=== PATIENT | female | born 1960 | race Hispanic/Latino ===

== ENCOUNTER 2018-04-07 01:40 | Inpatient (IN) | payer OTHER ==
[~2018-04-07] VITALS: Ht 167.6 cm; Wt 73.5 kg
[~2018-04-07 01:40] MED LIST: CRESTOR20 M2 PO; LISINOPRIL10 M1 PO; METFORMIN HCL500 M3 PO; TRAMADOL HCL50 M1 PO
--- NOTE | 2018-04-07 09:50 | Admission Core Measures ---
Acute Coronary Syndrome (CM) ACS Core Measures Acute Coronary Syndrome Diagnosis No Congestive Heart Failure (NEW) CHF Core Measures Congestive Heart Failure Diagnosis No Cerebrovascular Accident CVA Core Measures CVA/TIA Diagnosis No Venous Thromboembolism VTE Core Breana (View Protocol) VTE Risk Factors Surgery No Mechanical VTE Prophylaxis d/t N/A MechProphylax Ordered No VTE Pharm Prophylaxis d/t NA PharmProphylax ordered Problem List As ranked by this Provider includes Assessment & Plan 1. Unilateral primary osteoarthritis, right knee HOME MEDS Home Med List Lisinopril 10 MG TABLET 1 TAB PO DAILY BP (Reported) Metformin HCl 500 MG TABLET 1 TAB PO BID DM (Reported) Rosuvastatin Calcium (Crestor) 20 MG TABLET 1 TAB PO DAILY CHOLESTEROL ( Reported) Tramadol HCl 50 MG TABLET 1 TAB PO Q6P PRN PAIN (Reported)
--- NOTE | 2018-04-07 09:53 | Surg Short-stay <48hrs Dis Sum ---
Visit Information Visit Dates Admission Date: 04/07/18 Discharge Date: 04/09/18 Surgical Short Stay DC Summary Admission Diagnosis: Primary osteoarthritis, right knww Final Diagnosis: Same s/p R TKR Procedure(s): R TKR Summary/Significant Findings: Patient was admitted to the hospital for an elective total joint replacement. Procedure was tolerated well and patient was transferred to a general surgical floor. Diet was advanced and tolerated. Physical therapy performed evaluation and treatment. At time of hospital discharge, vital signs were stable, neurovascular status was intact, and pain was controlled with the use of oral pain medications. Condition at Discharge: Stable Discharge Disposition: home health services Discharge instructions provided to patient/family: Yes Post discharge follow-up plan: 6 weeks or sooner with concerns with Dr. Cook
--- NOTE | 2018-04-07 09:55 | Patient Discharge Instructions ---
Discharge Instructions General Discharge Information You were seen/treated for: Primary osteoarthritis, right knee You had these procedures: Right total knee replacement Watch for these problems: Increasing pain despite the use of pain medication Increasing redness, warmth or swelling Drainage of any type from incision Inability to bear weight on operative leg Persistent nausea and vomiting Fever greater than 101.5 degrees No bath, but you may shower: Yes Other wound care: Please keep wound clean and dry. No ointments or lotions of any type on or near incision. Your dressing will be changed by your nurse on the second day after your surgery. Daily dry dressing changes are recommended each day thereafter. Do not soak your wound- no tub baths/swimming. You may shower 48hr after surgery. Special Instructions: Aspirin: You are taking this medication to help prevent blood clot formation. Please take with food to protect your stomach lining. Please take as directed. Constipation: Pain medication can cause constipation. It is recommended that you take Colace and Miralax each day. Discontinue this medication if you develop loose stool or diarrhea. If you wish to continue this medication, it is available over the counter. If you are unable to move your bowels or unable to pass gas and are developing bloating, nausea, or vomiting as a result, please contact your doctor. Diet Continue normal diet: Yes Activity Full Activity/No Limits: No Activity Self Limited: Yes Activity Limited to: Weight bear as tolerated Other activity limits: Use rolling walker as needed Acute Coronary Syndrome Inclusion Criteria At DC or during hospital stay patient has or had the following: ACS DIAGNOSIS No Discharge Core Measures Meds if any: Prescribed or Continued at Discharge Meds if any: NOT Prescribed or Continued at Discharge Congestive Heart Failure Inclusion Criteria At DC or during hospital stay patient has or had the following: CHF DIAGNOSIS No Discharge Core Measures Meds if any: Prescribed or Continued at Discharge Meds if any: NOT Prescribed or Continued at Discharge Cerebrovascular accident Inclusion Criteria At DC or during hospital stay patient has or had the following: CVA/TIA Diagnosis No Discharge Core Measures Meds if any: Prescribed or Continued at Discharge Meds if any: NOT Prescribed or Continued at Discharge Venous thromboembolism Inclusion Criteria VTE Diagnosis No VTE Type NONE VTE Confirmed by (Test) NONE Discharge Core Measures - Per Current guidelines, there needs to be overlap - treatment for the first 5 days of Warfarin therapy. - If discharged on Warfarin prior to 5 days of - overlap therapy, the patient will need to be - assessed for post discharge needs including - *Post discharge parental anticoagulation - *Warfarin and/or parental anticoagulation education - *Follow up date to check INR post discharge At least 5 days overlap therapy as Inpatient No Meds if any: Prescribed or Continued at Discharge Note: Overlap Therapy is Warfarin and Anticoagulant Meds if any: NOT Prescribed or Continued at Discharge
[2018-04-07] MEDS ORDERED: MS CONTIN15 M3 PO (12:52)
[2018-04-07] MEDS ORDERED: ASPIRIN EC81 M1 PO (12:52)
[2018-04-07] MEDS ORDERED: MIRALAX17 G1 PO (12:52)
[2018-04-07] MEDS ORDERED: OMEPRAZOLE20 M2 PO (12:52)
[2018-04-07] MEDS ORDERED: DILAUDID2 M1 PO (12:52)
[2018-04-07] MEDS ORDERED: COLACE100 M1 PO (12:52)
--- NOTE | 2018-04-07 14:25 | Operative Report ---
Operative/Inv Procedure Report Surgery Date: 04/07/18 Name of Procedure: Right total knee replacement Pre-Operative Diagnosis: Primary right knee DJD Post-Operative Diagnosis: Same Estimated Blood Loss: 50ml to 100ml Surgeon/Job Site Superintendent: Joey LEE,Danny Brown Anesthesia: block Operative/Procedure Note Note: Description of Procedure: The patient was taken to the operating room and positively identified. After induction of spinal anesthesia and administration of appropriate pre-operative antibiotics, the patient was positioned supine on the operating room table and all bony prominences were well padded. A well-padded pneumatic tourniquet was placed on the right upper thigh. After performing a surgical timeout, the right lower extremity was prepped and draped in the usual sterile fashion. After exsanguination with Esmarch the tourniquet was inflated to 250mm of mercury. A standard medial parapatellar approach was made to the knee. This was carried down through skin and subcutaneous tissue to the level of the fascia. Meticulous hemostasis was maintained with Bovie electrocautery. The extensor mechanism and patellar retinaculum were opened sharply and the patella was everted. The infrapatellar fat was resected in order to improve exposure. Osteophytes were trimmed from the patella and femoral condyles and the patella was re-everted and tucked laterally. A medial release was performed and the cruciate ligaments were resected. The tibia was then subluxed anteriorly. Utilizing the appropriate extra-medullary guide, the proximal tibia was trimmed perpendicular to the long axis of the tibial shaft. Attention was then turned to the femur. After opening the medullary canal, the distal femoral cut was made in 6 degrees of valgus utilizing the appropriate intra-medullary guide. The extension gap was checked and found to be appropriate. The femur was then sized and the remainder of the femoral cuts were made with a size #4 4-in-1 femoral cutting guide. The flexion gap was checked and found to be symmetric and appropriate. The knee was then trialed with a size #4 femoral component, a size 3 tibial component and a size 9 mm polyethylene insert. The patella was trimmed to accept an A 35 patella. This yielded excellent range of motion, stability and patellar tracking. All trial components were removed and the knee was copiously irrigated with sterile saline. All components were cemented into place with [place] Simplex cement. All the components were of the J[employer] Tri[employer]lon knee system of the above stated sizes. The knee was again irrigated after cementation. The extensor mechanism and patellar retinaculum were repaired using interrupted #1 vicryl suture. The skin was re-approximated with 2-0 vicryl and closed with danni. A sterile dressing was applied, the tourniquet was deflated, the patient was awakened and taken to the recovery room in satisfactory condition.
[2018-04-07 16:07] VITALS: BP 106/70
[2018-04-07 18:14] VITALS: BP 138/70
--- NOTE | 2018-04-07 19:52 | PN- Orthopedic ---
Subjective Subjective: POC feeling ok, pain starting to increase, asking for meds now. no n/v. +oob to bathroom, +void. no cp/sob Objective Vital Signs and I&Os Vital Signs Date Time Temp Pulse Resp B/P B/P Pulse O2 O2 Flow FiO2 Mean Ox Delivery Rate 04/07 1814 97.8 79 18 138/70 99 Room Air 04/07 1607 97.8 70 18 106/70 97 Room Air Intake & Output 04/07 1600 04/07 0804/07 0000 04/06 1600 04/06 0800 04/06 0000 Intake Total Output Total Balance Patient 162 lb Weight Physical Exam: gen- nad, though appears uncomfortable card- [id number] pulm- ctab abd- soft nt ext- rle dressed in deandre- cdi, palp pedal pulses, gross sensation intact, +dorsi/ plantar flexion. calves soft nt bl, alps on. Assessment/Plan Assessment/Plan A- POD0 sp R TKR, stable with postop pain. P- prn pain meds oob, pt, wbat asa bid, alps dsg change pod2 diet as tolerated am labs i&os will dw attending Core Measures Venous Thromboembolism VTE Risk Factors Surgery No Mechanical VTE Prophylaxis d/t N/A MechProphylax Ordered No VTE Pharm Prophylaxis d/t NA PharmProphylax ordered
[2018-04-07 20:01] VITALS: BP 146/90
[2018-04-07 22:00] VITALS: BP 130/80
[2018-04-08 02:07] VITALS: BP 128/74
[2018-04-08 06:27] VITALS: BP 110/64
--- NOTE | 2018-04-08 07:29 | PN- Orthopedic ---
Subjective Subjective: No events overnight. Patient states pain is well controlled this am, denies any current pain to right knee. Denies any numbness, tingling, or shooting pain. Tolerating her diet without nausea or emesis. Voiding freely. Ambulated to the bathroom with walker, has not yet worked with PT per patient. Objective Vital Signs and I&Os Vital Signs Date Time Temp Pulse Resp B/P B/P Pulse O2 O2 Flow FiO2 Mean Ox Delivery Rate 04/08 0627 98.5 73 20 110/64 94 04/08 0207 98.5 65 20 128/74 96 / 2200 98.4 86 18 130/80 95 Room Air 04/07 2020 Room Air 04/07 2001 98.5 83 18 146/90 97 Room Air 04/07 1814 97.8 79 18 138/70 99 Room Air 04/07 1607 97.8 70 18 106/70 97 Room Air Intake & Output 04/08 0800 08/ 0000 04/07 1600 / 0800 08 0000 04/06 1600 Intake Total 700 1325 Output Total 350 Balance 350 1325 Intake, IV 700 525 Intake, Oral 800 Output, Urine 350 Patient 162 lb 162 lb Weight Physical Exam: Afebrile, VSS. Cardiac: RRR Pulmonary: CTAB RLE: SHEREE bandage c/d/i, no drainage noted. Foot warm, + DP/PT pulse. 5/5 plantarflexion/dorsiflexion. Motor and sensation grossly intact. No calf tenderness, negative Odalys's. Assessment/Plan Assessment/Plan A- POD#1 s/p R TKR, stable with postop pain that is better controlled this am. Plan: - Diet as tolerated - Pain - MS Contin BID, PO Dilaudid prn, morphine for breakthough - Bowel regimen - Colace BID - PT to see, WBAT to RLE - Dressing change POD # 2 - Encourage OOB/IS/ambulation - Follow up am labs - DVT ppx - ASA BID, alps - dc planning - pl and for d/c home, pt states her son from [place], [place] will pick her up on discharge - will d/w attending Core Measures Venous Thromboembolism VTE Risk Factors Surgery No Mechanical VTE Prophylaxis d/t N/A MechProphylax Ordered No VTE Pharm Prophylaxis d/t NA PharmProphylax ordered
[2018-04-08 08:20] LABS: ABSOLUTE BASOPHIL COUNT 0 /CUMM (0.0-0.2); ABSOLUTE EOSINOPHIL COUNT 0.1 /CUMM (0.0-0.7); ABSOLUTE GRANULOCYTE CT 4.1 /CUMM (1.4-6.5); ABSOLUTE LYMPH COUNT 1.4 /CUMM (1.2-3.4); ABSOLUTE MONOCYTE COUNT 0.7 /CUMM (0.10-0.60); BASOPHIL % 0.6 % (0.0-2.0); GRANULOCYTE % 64.4 % (42.2-75.2); HEMATOCRIT 33.7 % (37-47); MEAN CORPUSCULAR HGB 27.4 PG (27.0-31.0); MEAN CORPUSCULAR HGB CONC 33.2 G/DL (33.0-37.0); MEAN CORPUSCULAR VOLUME 82.6 FL (81.0-99.0); MEAN PLATELET VOLUME 7.9 FL (7.4-10.4); PLATELET COUNT 246 /CUMM (130-400); RED BLOOD CELL CT 4.07 /CUMM (4.20-5.40); WHITE BLOOD CELL COUNT 6.3 /CUMM (4.8-10.8)
[2018-04-08 09:53] VITALS: BP 122/80
[2018-04-08 13:47] VITALS: BP 118/70
[2018-04-08 18:24] VITALS: BP 130/70
[2018-04-08 22:00] VITALS: BP 128/82
[2018-04-09 06:38] VITALS: BP 132/64
--- NOTE | 2018-04-09 08:12 | PN- Orthopedic ---
Subjective Subjective: Feeling well, pain controlled. Tolerating diet, no nausea or vomitting. Voiding without difficulty. Has been oob with PT, ambulated. Anticipates dc to home with [facility] today or tomorrow. Objective Vital Signs and I&Os Vital Signs Date Time Temp Pulse Resp B/P B/P Pulse O2 O2 Flow FiO2 Mean Ox Delivery Rate 04/09 0638 98.6 100 20 132/64 94 08/ 2200 99.8 91 20 128/82 96 08/ 1824 98.8 90 16 130/70 94 Room Air 04/08 1347 99.5 79 20 118/70 94 Room Air 04/08 0953 98.4 82 20 122/80 97 Room Air 04/08 0844 96 100/70 Intake & Output 04/09 1600 04/09 0804/09 0000 04/08 1600 04/08 0800 / 0000 Intake Total 600 1000 537 288 8722 Output Total 400 600 350 Balance 200 1000 851 788 4453 Intake, IV 600 600 700 525 Intake, Oral 400 525 800 Intake, Other 360 Output, Urine 400 600 350 Patient 162 lb Weight Physical Exam: General: Alert and oriented x3, no acute distress Cardiac: RRR, s1s2 PUlm: CTA bilaterally, non-labored Abd: Non-tender, non-distended Ext: Neurovascualr intact. Dressing changed, incision without drainage or erythema. Clean dry dressig applied. Bilateral calves soft and non-tender Assessment/Plan Assessment/Plan 57 year old female, pod 2, s/p R TKR, doing well Ambulate with PT today, stairs if PT feels necessary, pateint has elevator at home OOB, wbat Continue diet as tolerated, continue current pain regimen DC iv fluids now Contineu asa for dvt ppx Daily dry dressing changes DC to home today if clear pt Will discuss plan of care with Dr. Cook Core Measures Venous Thromboembolism VTE Risk Factors Surgery No Mechanical VTE Prophylaxis d/t N/A MechProphylax Ordered No VTE Pharm Prophylaxis d/t NA PharmProphylax ordered
[2018-04-09 14:20] VITALS: BP 130/70
== END 2018-04-09 15:40 | disposition home health service (06) | DRG 470 ==
LOC: SDA 01:40 → 2NA 01:40 → ENRESERV 14:59 → ENTRNSPT 15:46 → EDTRNSPTSTS 16:02 → EDTRNSPT 16:02 → 2NA 16:06 → CMPTRNSPT 16:16 → ENPENDDIS 04-09 13:06 → ENTRNSPT 04-09 15:25 → EDTRNSPTSTS 04-09 15:39 → EDTRNSPT 04-09 15:39 → 2NA 04-09 15:40 → CMPTRNSPT 04-09 15:51
PROVIDERS: Physician Assistant Surgical
PROC: 0SRC0J9 Replacement of Right Knee Joint with Synthetic Substitute, Cemented, Open Approach (ICD-10-PCS; principal; 2018-04-07)
PROC: 3E0T3BZ Introduction of Anesthetic Agent into Peripheral Nerves and Plexi, Percutaneous Approach (ICD-10-PCS; 2018-04-07)
DX: M17.11 Unilateral primary osteoarthritis, right knee (principal); I10 Essential (primary) hypertension; G47.33 Obstructive sleep apnea (adult) (pediatric); E11.9 Type 2 diabetes mellitus without complications; F32.9 Major depressive disorder, single episode, unspecified; E78.5 Hyperlipidemia, unspecified; Z79.84 Long term (current) use of oral hypoglycemic drugs; Z90.710 Acquired absence of both cervix and uterus
CPT/HCPCS: 2NASP; 36592; 82436; 97110-GO; 97116-GO; 97161-GP; 97530-GO; C1713; C9290; J0690; J2405; J7042

== ENCOUNTER → 2018-05-24 | Day surgery (SDC) | payer OTHER ==
[~2018-05-24] VITALS: Ht 167.6 cm; Wt 68.9 kg
[~2018-05-24] MED LIST changes: +ASPIRIN EC81 M1 PO; +COLACE100 M1 PO; +DILAUDID2 M1 PO; +MIRALAX17 G1 PO; +MS CONTIN15 M3 PO; +OMEPRAZOLE20 M2 PO
--- NOTE | 2018-05-24 15:56 | Operative Report ---
Operative/Inv Procedure Report Surgery Date: 05/24/18 Name of Procedure: Right knee manipulation under anesthesia Pre-Operative Diagnosis: Right knee arthrofibrosis Post-Operative Diagnosis: Same Estimated Blood Loss: none Surgeon/Tax Lawyer: Danny Cook MD Anesthesia: local monitored anesthesi Operative/Procedure Note Note: The patient is brought to the operating room and positively identified. After induction of sedation and muscle relaxation, the knee could be passively flexed to approximately 90. Utilizing gentle but firm pressure over the tibial tubercle the knee was flexed to approximately 130. Audible release of scar tissue was noted. The knee was prepped sterilely and injected with a mixture of 2 mL of Depo- Medrol and 6 mL of half percent Marcaine. A Band-Aid was placed over the injection site. The patient was awakened and taken to the recovery room in satisfactory condition.
== END ==
LOC: STS 01:48
DX: M24.661 Ankylosis, right knee (principal); Z96.659 Presence of unspecified artificial knee joint; I10 Essential (primary) hypertension; G47.33 Obstructive sleep apnea (adult) (pediatric)
CPT/HCPCS: J1030; J2250